=== PATIENT | female | born 1970 | race Two or more races ===

== ENCOUNTER 2020-03-17 19:47 | Emergency (ER) | payer BC ==
[~2020-03-17] VITALS: Ht 162.6 cm; Wt 63.5 kg
--- NOTE | 2020-03-17 20:00 | NUR ---
ED Nurse Note:pt amb to [facility] and obtaining urine sample. pt relates dysuria with voiding. pt denies fever or n/v.
[2020-03-17] MEDS ORDERED: IRON240 M1 PO (20:10)
--- NOTE | 2020-03-17 20:44 | Emergency Room Report ---
History of Present Illness General Chief Complaint: Female Urogenital Problems Source: Patient Present Illness HPI 49-year-old female with a history of recurrences of UTI here complaining of 1 day of dysuria urinary frequency and urgency. Denies any hematuria, fever and chills, nausea vomiting. Denies diffuse abdominal pain. Has not taken medication for symptom relief. Denies been sexually active for denies vaginal discharge. Denies . Allergies: Coded Allergies: No Known Allergies (Unverified , 03/17/20) COVID-19 Screening Contact w/high risk pt: No Experienced COVID-19 symptoms?: No COVID-19 Testing performed PUBLICATIONS MANAGER: No Patient History Past Medical History: see triage record Past Surgical History: none Pertinent Family History: none Last Menstrual Period: mar 05 Now: No Immunizations: UTD Reviewed Nursing Documentation: PMH: Agreed; PSxH: Agreed Nursing Documentation-PMH Past Medical History: No History, Except For Review of Systems All Other Systems: negative except mentioned in HPI Physical Exam Vital Signs Date Time Temp Pulse Resp B/P (MAP) Pulse Ox O2 Delivery O2 Flow Rate FiO2 03/17/20 20:06 98.6 102 20 119/63 (81) 98 Room Air Sp02 EP Interpretation: reviewed, normal General Appearance: no apparent distress, alert, GCS 15, non-toxic Head: normocephalic, atraumatic Eyes: bilateral eye normal inspection, bilateral eye PERRL ENT: no angioedema Neck: supple Respiratory: no rhonchi, no retraction Cardiovascular #1: no edema, no murmur Gastrointestinal: soft Genitourinary: no CVA tenderness Musculoskeletal: back normal Neurologic: alert, motor strength/tone normal, oriented x3, sensory intact, responsive, speech normal Psychiatric: judgement/insight normal, memory normal, mood/affect normal, no suicidal/homicidal ideation Skin: no rash Lymphatic: no adenopathy Medical Decision Making PA Attestation All my diagnosis and treatment plans were reviewed ad discussed with my supervising physician Dr. Plasencia Diagnostic Impression: Primary Impression: UTI (urinary tract infection) ER Course 49-year-old female with a history of recurrences of UTI here complaining of 1 day of dysuria urinary frequency and urgency. Denies any hematuria, fever and chills, nausea vomiting. Denies diffuse abdominal pain. Has not taken medication for symptom relief. Denies been sexually active for denies vaginal discharge. Denies . Ddx considered but are not limited to: UTI, pyelonephritis, urinary incontinence, prolapsed bladder Vital signs: are WNL, pt. is afebrile H&PE are most consistent with: UTI ORDERS: UA, urine cx, urine test, Keflex, Pyridium ED INTERVENTIONS: None required at this time. DISCHARGE: At this time pt. is stable for d/c to home. Will provide printed patient care instructions, and any necessary prescriptions. Care plan and follow up instructions have been discussed with the patient prior to discharge. Take medication as directed, follow primary care provider, worsening symptoms return to the emergency room Last Vital Signs Date Time Temp Pulse Resp B/P (MAP) Pulse Ox O2 Delivery O2 Flow Rate FiO2 03/17/20 20:06 98.6 102 20 119/63 (81) 98 Room Air Disposition: HOME, SELF-CARE Condition: Stable Scripts Phenazopyridine Hcl* (PYRIDIUM*) 200 Mg Tablet 200 MG ORAL THREE TIMES A DAY for 2 Days, #6 TAB 0 Refills Prov: Smiley Peña 03/17/20 Cephalexin* (KEFLEX*) 500 Mg Capsule 500 MG ORAL EVERY 12 HOURS for 7 Days, #14 CAP 0 Refills Prov: Smiley Peña 03/17/20 Patient Instructions: Urinary Tract Infection Additional Instructions: Take medication as directed, follow primary care provider, worsening symptoms return to the emergency room Smiley Peña Mar 17, 2020 20:44
[2020-03-17 20:47] LABS: APPEARANCE,URINE CLOUDY; BILIRUBIN, URINE NEGATIVE (NEGATIVE); COLOR,URINE PALE YELLOW; GLUCOSE, URINE (UA) NEGATIVE (NEGATIVE); KETONES,URINE NEGATIVE (NEGATIVE); LEUKOCYTE ESTERASE ,URINE 2+ (NEGATIVE); NITRITE,URINE NEGATIVE (NEGATIVE); PH,URINE 5 (4.5-8.0); PROTEIN,URINE 1+ (NEGATIVE); UROBILINOGEN,URINE NORMAL MG/DL (0.0-1.0)
[2020-03-17] MEDS ORDERED: CEPHALEXIN500 MG ORAL (20:49)
[2020-03-17] MEDS ORDERED: PHENAZOPYRIDIN200 MG ORAL (20:49)
[2020-03-17 20:56] VITALS: BP 117/61
--- NOTE | 2020-03-17 20:57 | NUR ---
ED Nurse Note: Pt cleared by health care Provider for discharge. DC instructions/prescription was given and explained to pt and verbalized understanding of teachings. All medical devices such as ID band removed. Pt is AAO x4, ambulatory and left with all personal belongings.
[2020-03-17 21:02] VITALS: BP_SYST 116; BP_SYST 117; BP_DIAS 61
== END 2020-03-17 20:56 | disposition home or self-care (01) ==
LOC: EMR 20:20
DX: N39.0 Urinary tract infection, site not specified (principal)
CPT/HCPCS: 81003; 81025; 87086; 87181; 99282